=== PATIENT | male | born 1960 | race Caucasian/White ===

== ENCOUNTER 2017-12-17 18:27 | Emergency (ER) | payer SELFPAY ==
[~2017-12-17] VITALS: Ht 172.7 cm; Wt 66.0 kg
[2017-12-17 18:29] VITALS: BP 148/70; PULSE 94; RESP 20; TEMP 97.7; O2SAT 97
[2017-12-17] MEDS ORDERED: DEXAMETHASONE SOD PHOS 4 MG/ML VIAL IM ONE (19:15)
[2017-12-17] MEDS ORDERED: KETOROLAC TROMETHAMINE 60 MG/2 ML (IM) VIAL IM ONE (19:15)
[2017-12-17] MEDS ORDERED: CLINDAMYCIN INJ 600 MG in SODIUM CHLORIDE 0.9% INJ 100 ML IV ONE (19:15)
[2017-12-17 19:35] LABS: BASOPHIL % 0.8 % (0.0-2.0); EOSINOPHIL # 0.7 TH/MM3 (0-0.4); EOSINOPHIL % 12.2 % (0.0-4.0); HEMATOCRIT 39.4 % (39.0-51.0); LYMPHOCYTE # 1.6 TH/MM3 (1.0-4.8); MEAN CELL VOLUME 99.3 FL (80.0-100.0); MEAN CORPUSCULAR HEMOGLOBIN 35.4 PG (27.0-34.0); MEAN CORPUSCULAR HGB CONC 35.6 % (32.0-36.0); MEAN PLATELET VOLUME 7.7 FL (7.0-11.0); MONO % 10.5 % (0.0-8.0); MONOCYTE # 0.6 TH/MM3 (0-0.9); NEUT % 50.5 % (16.0-70.0); PLATELET COUNT 163 TH/MM3 (150-450); RED BLOOD COUNT 3.97 MIL/MM3 (4.50-5.90); RED CELL DISTRIBUTION WIDTH 13.9 % (11.6-17.2)
--- NOTE | 2017-12-17 19:43 | PD ---
HPI Chief Complaint: Skin Problem Time Seen by Provider: 18:42 Travel History International Travel<30 days: No Contact w/Intl Traveler<30days: No Traveled to known affect area: No History of Present Illness HPI 57-year-old , homeless male presents to the emergency department for evaluation of a rash that has been persistent for 2-3 weeks. 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 Says that he went to [facility], was evaluated and given Bactrim and triamcinolone ointment says he has used calamine lotion, bleach, peroxide and other substances without significant improvement. Patient states that the pain is moderate in severity, constant, aching. Also states that the rash is pruritic. He notes swelling of the lower extremities. He denies chronic medical issues medication use. States he does smoke tobacco and does use alcohol. PFSH Past Medical History Blood Disorders: No Cancer: No Cardiovascular Problems: No Diminished Hearing: Yes ([place]) Endocrine: No Genitourinary: No Hypertension: Yes Immune Disorder: No Musculoskeletal: No Neurologic: No Reproductive: No Respiratory: No Past Surgical History Other Surgery: No Social History Alcohol Use: Yes (DAILY DRINKER ) Tobacco Use: Yes (PACK A DAY ) Substance Use: Yes (marijuana) Allergies-Medications (Allergen,Severity, Reaction): Coded Allergies: No Known Allergies (Unverified Adverse Reaction, Unknown, 12/17/17) Reported Meds & Prescriptions Reported Meds & Active Scripts Active Prednisone 5 Mg Tab 5 Mg PO DAILY 10 Days Clindamycin (Clindamycin HCl) 300 Mg Cap 300 Mg PO TID 10 Days Review of Systems Except as stated in HPI: all other systems reviewed are Neg Physical Exam Narrative GENERAL: Well-developed, well-nourished in mild distress SKIN: Focused skin assessment warm/dry. Sun exposed areas of upper and lower extremities with rash. upper extremities-diffuse erythema with multiple healing papules, scattered. Mild edema of the left upper extremity about the wrist. Neurovascularly intact. Bilateral lower extremities-edema distal to the knees bilateral. Neurovascular intact. Homans sign negative. Obvious fissures, scaling. HEAD: Atraumatic. Normocephalic. EYES: Pupils equal and round. No scleral icterus. No injection or drainage. ENT: No nasal bleeding or discharge. Mucous membranes pink and moist. NECK: Trachea midline. No JVD. CARDIOVASCULAR: Regular rate and rhythm. No murmur appreciated. RESPIRATORY: No accessory muscle use. Clear to auscultation. Breath sounds equal bilaterally. MUSCULOSKELETAL: No obvious deformities. No clubbing. No cyanosis. No edema. NEUROLOGICAL: Awake and alert. No obvious cranial nerve deficits. Motor grossly within normal limits. Normal speech. PSYCHIATRIC: Appropriate mood and affect; insight and judgment normal. Data Data Last Documented VS Vital Signs Date Time Temp Pulse Resp B/P (MAP) Pulse Ox O2 Delivery O2 Flow Rate FiO2 12/17/17 18:29 97.7 94 20 148/70 (96) 97 Orders Orders Basic Metabolic Panel (Bmp) (12/17/17 19:01) Complete Blood Count With Diff (12/17/17 19:01) Blood Culture (12/17/17 19:01) Iv Access Insert/Monitor (12/17/17 19:01) Ketorolac Inj (Toradol Inj) (12/17/17 19:15) Clindamycin Inj (Cleocin Inj) (12/17/17 19:15) Dexamethasone Inj (Decadron Inj) (12/17/17 19:15) Ed Discharge Order (12/17/17 21:07) Labs Laboratory Tests Test 12/17/17 19:20 White Blood Count 6.0 TH/MM3 Red Blood Count 3.97 MIL/MM3 Hemoglobin 14.0 GM/DL Hematocrit 39.4 % Mean Corpuscular Volume 99.3 FL Mean Corpuscular Hemoglobin 35.4 PG Mean Corpuscular Hemoglobin Concent 35.6 % Red Cell Distribution Width 13.9 % Platelet Count 163 TH/MM3 Mean Platelet Volume 7.7 FL Neutrophils (%) (Auto) 50.5 % Lymphocytes (%) (Auto) 26.0 % Monocytes (%) (Auto) 10.5 % Eosinophils (%) (Auto) 12.2 % Basophils (%) (Auto) 0.8 % Neutrophils # (Auto) 3.0 TH/MM3 Lymphocytes # (Auto) 1.6 TH/MM3 Monocytes # (Auto) 0.6 TH/MM3 Eosinophils # (Auto) 0.7 TH/MM3 Basophils # (Auto) 0.0 TH/MM3 CBC Comment DIFF FINAL Differential Comment Blood Urea Nitrogen 10 MG/DL Creatinine 0.76 MG/DL Random Glucose 89 MG/DL Calcium Level 8.0 MG/DL Sodium Level 130 MEQ/L Potassium Level 3.6 MEQ/L Chloride Level 93 MEQ/L Carbon Dioxide Level 26.8 MEQ/L Anion Gap 10 MEQ/L Estimat Glomerular Filtration Rate 106 ML/MIN MDM Medical Decision Making Medical Screen Exam Complete: Yes Emergency Medical Condition: Yes Differential Diagnosis Cellulitis, erysipelas, scabies, bedbugs, insect bites Narrative Course 57-year-old , homeless male presents to the emergency department for evaluation of a rash that has been persistent for 2-3 weeks. 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 Says that he went to [facility], was evaluated and given Bactrim and triamcinolone ointment says he has used calamine lotion, bleach, peroxide and other substances without significant improvement. Patient states that the pain is moderate in severity, constant, aching. Also states that the rash is pruritic. He notes swelling of the lower extremities. He denies chronic medical issues medication use. States he does smoke tobacco and does use alcohol. Vital signs are stable. Heart rate 94. Blood pressure stable. Afebrile. Dexamethasone, clindamycin, Toradol administered. Physical exam findings consistent with cellulitis and contact dermatitis. Patient has mild hyponatremia, chronic. Note the patient is a chronic alcoholic. No leukocytosis present. Patient will be discharged with clindamycin and prednisone. He is advised to follow-up with a primary care physician or clinical pharmacologist regarding his condition. Diagnosis Primary Impression: Contact dermatitis Qualified Codes: L24.7 - Irritant contact dermatitis due to plants, except food Additional Impression: Cellulitis Qualified Codes: L03.119 - Cellulitis of unspecified part of limb Referrals: Test Technician Primary Care Physician Additional Instructions: Follow-up with [facility] regarding your skin condition. Avoid triggers or other contacts that may exacerbate your skin condition. You may use [id number] Tylenol Motrin per package instructions for your pain. Take all medications as prescribed. Scripts Prednisone (Prednisone) 5 Mg Tab 5 MG PO DAILY for 10 Days, #10 TAB 0 Refills Prov: Jeffry hPillip MD 12/17/17 Clindamycin (Clindamycin) 300 Mg Cap 300 MG PO TID for Infection for 10 Days, CAP 0 Refills Prov: Jeffry Phillip MD 12/17/17 Disposition: 01 DISCHARGE HOME Condition: Stable Aisha Ascencio Dec 17, 2017 19:43
[2017-12-17 19:54] LABS: BICARBONATE 26.8 MEQ/L (21.0-32.0); CREATININE 0.76 MG/DL (0.60-1.30)
[2017-12-17] MEDS ORDERED: PRED5TAB PO (20:09)
[2017-12-17] MEDS ORDERED: CLIN300C5 PO (20:09)
== END 2017-12-17 21:47 | disposition home or self-care (01) ==
LOC: NEPC 18:27
DX: L24.7 Irritant contact dermatitis due to plants, except food (principal); F17.210 Nicotine dependence, cigarettes, uncomplicated
CPT/HCPCS: 80048; 85025; 87040; 96372; 96374; 99284; J1100; J1885

== ENCOUNTER 2017-12-29 01:35 | Emergency (ER) | payer SELFPAY ==
[~2017-12-29] VITALS: Ht 172.7 cm; Wt 62.8 kg
[~2017-12-29 01:35] MED LIST: CLIN300C5 PO; PRED5TAB PO
[2017-12-29 01:46] VITALS: BP 125/72; PULSE 86; TEMP 97.3
[2017-12-29 02:50] VITALS: BP 125/72; PULSE 86; RESP 16; TEMP 97.3; O2SAT 98
--- NOTE | 2017-12-29 04:40 | PD ---
HPI Chief Complaint: Skin Problem Time Seen by Provider: 03:07 Travel History International Travel<30 days: No Contact w/Intl Traveler<30days: No Traveled to known affect area: No History of Present Illness HPI pt is a 57 yr old male who reports that he was working in [place] and poison oak got on his arms and legs and , it has never gone back to normal , He reports constant pain itching burning scaling sloughing skin on lower legs and fore arms bilateral , He currently is not on any meds . He reports he goes to [facility] and they tell him he must see a specialist ' and then they kick me out and I never get to see a specialist. Pt is mildly intoxicated and sleeping , his legs and arms look like ezcema like chronic inflammation , most likely started 4 months ago wit the exposure to poison oak [facility] Past Medical History Blood Disorders: No Cancer: No Cardiovascular Problems: No Diminished Hearing: Yes ([place]) Endocrine: No Genitourinary: No Hypertension: Yes Immune Disorder: No Musculoskeletal: No Neurologic: No Reproductive: No Respiratory: No Influenza Vaccination: No Past Surgical History Other Surgery: No Social History Alcohol Use: Yes (DAILY DRINKER ) Tobacco Use: Yes (PACK A DAY ) Substance Use: Yes (marijuana) Allergies-Medications (Allergen,Severity, Reaction): Coded Allergies: No Known Allergies (Unverified Adverse Reaction, Unknown, 12/29/17) Reported Meds & Prescriptions Reported Meds & Active Scripts Active Hydrocortisone Maximum St (Hydrocortisone (Topical)) 1 % Cre 1 Applic TOPICAL TID Keflex (Cephalexin) 500 Mg Cap 500 Mg PO Q8H Prednisone 50 Mg Tab 50 Mg PO DAILY Prednisone 5 Mg Tab 5 Mg PO DAILY 10 Days Clindamycin (Clindamycin HCl) 300 Mg Cap 300 Mg PO TID 10 Days Review of Systems Except as stated in HPI: all other systems reviewed are Neg Skin: Positive Rash, Positive Itching, Positive Dryness Physical Exam Narrative GENERAL: mildly disheveled SKIN: Warm and dry. Patient has flaking scaling dry red bilateral legs no signs of infection no purulent discharge no cracking or weeping it appears to be all inflammation process of the dermis dermatitis with chronic scaling flaking also the upper arms same appearance HEAD: Atraumatic. Normocephalic. EYES: Pupils equal and round. No scleral icterus. No injection or drainage. ENT: No nasal bleeding or discharge. Mucous membranes pink and moist. NECK: Trachea midline. No JVD. CARDIOVASCULAR: Regular rate and rhythm. RESPIRATORY: No accessory muscle use. Clear to auscultation. Breath sounds equal bilaterally. GASTROINTESTINAL: Abdomen soft, non-tender, nondistended. Hepatic and splenic margins not palpable. MUSCULOSKELETAL: Extremities scaling cracking erythematous legs and arms looks like eczema thickened scaly flaking skin NEUROLOGICAL: Awake and alert. No obvious cranial nerve deficits. Motor grossly within normal limits. Five out of 5 muscle strength in the arms and legs. Normal speech. PSYCHIATRIC: Appropriate mood and affect; insight and judgment normal. Data Data Last Documented VS Vital Signs Date Time Temp Pulse Resp B/P (MAP) Pulse Ox O2 Delivery O2 Flow Rate FiO2 12/29/17 06:24 78 16 102/65 (77) 96 12/29/17 05:17 Room Air 12/29/17 02:50 97.3 Orders Orders Prednisone (Deltasone) (12/29/17 04:45) Cephalexin (Keflex) (12/29/17 04:45) Acetamin-Hydrocod 325-5 Mg ([place] 5-325 (12/29/17 04:45) Ibuprofen (Motrin) (12/29/17 04:45) Ed Discharge Order (12/29/17 06:11) MDM Medical Decision Making Medical Screen Exam Complete: Yes Emergency Medical Condition: Yes Differential Diagnosis Differential diagnosis includes eczema versus atopic dermatitis versus contact dermatitis versus eczema versus poison oak that has caused a chronic inflammation of the skin Narrative Course Patient is given prednisone Keflex and 1 pain pill and discharged with Keflex for 5 days and prednisone for 5 days follow-up dermatology Diagnosis Primary Impression: Dermatitis Patient Instructions: Dermatitis (ED), General Instructions Scripts Hydrocortisone (Topical) (Hydrocortisone Maximum St) 1 % Cre 1 APPLIC TOPICAL TID, #30 GM Prov: Gurdeep Diehl MD 12/29/17 Cephalexin (Keflex) 500 Mg Cap 500 MG PO Q8H for Infection, #21 CAP 0 Refills Prov: Gurdeep Diehl MD 12/29/17 Prednisone (Prednisone) 50 Mg Tab 50 MG PO DAILY, #5 TAB 0 Refills Prov: Gurdeep Diehl MD 12/29/17 Disposition: 01 DISCHARGE HOME Condition: Good Gurdeep Diehl MD December 29, 2017 04:40
[2017-12-29] MEDS ORDERED: IBUPROFEN 600 MG TAB PO ONE (04:45)
[2017-12-29] MEDS ORDERED: CEPHALEXIN MONOHYDRATE 500 MG CAP PO ONE (04:45)
[2017-12-29] MEDS ORDERED: predniSONE 20 MG TAB PO ONE (04:45)
[2017-12-29] MEDS ORDERED: ACETAMINOPHEN/HYDROcodone 325 MG/5 MG TAB PO ONE (04:45)
[2017-12-29 05:17] VITALS: BP 103/60; PULSE 78; RESP 18; O2SAT 96
[2017-12-29 05:48] VITALS: RESP 16
[2017-12-29] MEDS ORDERED: PRED50 PO (06:05)
[2017-12-29] MEDS ORDERED: CEPH-460 PO (06:05)
[2017-12-29] MEDS ORDERED: HYDR1CRE15 TOPICAL (06:06)
[2017-12-29 06:24] VITALS: BP 102/65
[2017-12-29] MEDS ORDERED: BACT800T5 PO (06:41)
== END 2017-12-29 06:35 | disposition home or self-care (01) ==
LOC: PHED 01:35
DX: L30.9 Dermatitis, unspecified (principal); I10 Essential (primary) hypertension; F17.200 Nicotine dependence, unspecified, uncomplicated; F12.90 Cannabis use, unspecified, uncomplicated; Z79.899 Other long term (current) drug therapy
CPT/HCPCS: 99283; J7512

== ENCOUNTER 2018-01-22 01:44 | Emergency (ER) | payer OTHER ==
[~2018-01-22 01:44] MED LIST changes: +BACT800T5 PO; +CEPH-460 PO; +HYDR1CRE15 TOPICAL; +PRED50 PO
[2018-01-22 02:43] VITALS: BP 141/83; PULSE 84; RESP 16; TEMP 97.8; O2SAT 95
[2018-01-22] MEDS ORDERED: SODIUM CHLORIDE 0.9% FLUSH 10 ML FLUSH IVF PRN (03:30)
[2018-01-22 04:10] LABS: CREATININE 0.56 MG/DL (0.60-1.30)
--- NOTE | 2018-01-22 05:10 | PD ---
HPI Chief Complaint: Alcohol/Drug Intoxication Time Seen by Provider: 03:18 Travel History International Travel<30 days: No Contact w/Intl Traveler<30days: No Traveled to known affect area: No History of Present Illness HPI 57-year-old male with a history of alcoholism, presents here requesting detox. Patient states he wishes to go to [facility] Patient reports drinking heavily daily. He would not quantitate what he drinks daily. He has a history of left eye injury in the past. There are no other complaints at time of examination. PFSH Past Medical History Blood Disorders: No Cancer: No Cardiovascular Problems: No Diminished Hearing: Yes ([place]) Endocrine: No Genitourinary: No Hypertension: Yes Immune Disorder: No Musculoskeletal: No Neurologic: No Reproductive: No Respiratory: No Past Surgical History Surgical History: No Previous Surgery Other Surgery: No Social History Alcohol Use: Yes (DAILY DRINKER ) Tobacco Use: Yes (PACK A DAY ) Substance Use: Yes (marijuana, HEROIN ) Allergies-Medications (Allergen,Severity, Reaction): Coded Allergies: No Known Allergies (Unverified Adverse Reaction, Unknown, 12/29/17) Reported Meds & Prescriptions Reported Meds & Active Scripts Active Bactrim DS (Sulfamethoxazole-Trimethoprim) 800-160 Mg Tab 1 Tab PO BID Hydrocortisone Maximum St (Hydrocortisone (Topical)) 1 % Cre 1 Applic TOPICAL TID Keflex (Cephalexin) 500 Mg Cap 500 Mg PO Q8H Prednisone 50 Mg Tab 50 Mg PO DAILY Prednisone 5 Mg Tab 5 Mg PO DAILY 10 Days Clindamycin (Clindamycin HCl) 300 Mg Cap 300 Mg PO TID 10 Days Review of Systems ROS Limitations: Intoxication (Limited secondary to his intoxication) Cardiovascular: No: Chest Pain or Discomfort, Palpitations Respiratory: No: Cough, Shortness of Breath Physical Exam Narrative GENERAL: Well-nourished, well-developed patient who appears intoxicated. Patient is in no acute respiratory distress. SKIN: Focused skin assessment warm/dry. HEAD: Normocephalic/atraumatic. EYES: Right eye is without injection or drainage or icteric sclera. Patient has an old injury to his left eye. NECK: Supple, trachea midline. CARDIOVASCULAR: Regular rate and rhythm without murmurs, gallops, or rubs. RESPIRATORY: Breath sounds equal bilaterally. No accessory muscle use. GASTROINTESTINAL: Abdomen soft, non-tender, nondistended. MUSCULOSKELETAL: No cyanosis, or edema. NEUROLOGICAL: Awake and intoxicated. Cranial nerves II through XII intact. Motor and sensory grossly within normal limits. Five out of 5 muscle strength in all muscle groups. Slurred speech Data Data Last Documented VS Vital Signs Date Time Temp Pulse Resp B/P (MAP) Pulse Ox O2 Delivery O2 Flow Rate FiO2 01/22/18 02:43 97.8 84 16 141/83 (102) 95 Orders Orders Basic Metabolic Panel (Bmp) (01/22/18 03:18) Iv Access Insert/Monitor (01/22/18 03:18) Sodium Chloride 0.9% Flush (Ns Flush) (01/22/18 03:30) Alcohol (Ethanol) (01/22/18 03:18) Labs Laboratory Tests Test 01/22/18 03:44 Blood Urea Nitrogen 8 MG/DL Creatinine 0.56 MG/DL Random Glucose 119 MG/DL Calcium Level 8.0 MG/DL Sodium Level 139 MEQ/L Potassium Level 3.4 MEQ/L Chloride Level 104 MEQ/L Carbon Dioxide Level 24.0 MEQ/L Anion Gap 11 MEQ/L Estimat Glomerular Filtration Rate 150 ML/MIN Ethyl Alcohol Level 237 MG/DL MDM Medical Decision Making Medical Screen Exam Complete: Yes Emergency Medical Condition: Yes Differential Diagnosis Intoxication versus metabolic derangement versus malingering Narrative Course 57-year-old male with history of chronic alcohol abuse, presents here requesting [facility] referral. Patient is intoxicated. Blood alcohol level is greater than 200. He will be observed until he is appropriately sober. We will attempt to try to get him to [facility] tomorrow. He is currently not under a [place] act. Diagnosis Primary Impression: Alcohol intoxication Justin Banks MD Jan 22, 2018 05:10
[2018-01-22 06:04] VITALS: BP 97/59; PULSE 86; RESP 20; O2SAT 96
--- NOTE | 2018-01-22 09:46 | PD ---
Physical Exam Time Seen by Provider: 09:43 Narrative patient has given him a substantial amount of time to sleep and sober up. He is awake and ambulating in the hallway without complication. He has no medical complaints at this time. Patient is safe for discharge. Data Data Last Documented VS Vital Signs Date Time Temp Pulse Resp B/P (MAP) Pulse Ox O2 Delivery O2 Flow Rate FiO2 01/22/18 06:04 86 20 97/59 (72) 96 01/22/18 02:43 97.8 Orders Orders Basic Metabolic Panel (Bmp) (01/22/18 03:18) Iv Access Insert/Monitor (01/22/18 03:18) Sodium Chloride 0.9% Flush (Ns Flush) (01/22/18 03:30) Alcohol (Ethanol) (01/22/18 03:18) Diet Regular Basic (01/22/18 Breakfast) Labs Laboratory Tests Test 01/22/18 03:44 Blood Urea Nitrogen 8 MG/DL Creatinine 0.56 MG/DL Random Glucose 119 MG/DL Calcium Level 8.0 MG/DL Sodium Level 139 MEQ/L Potassium Level 3.4 MEQ/L Chloride Level 104 MEQ/L Carbon Dioxide Level 24.0 MEQ/L Anion Gap 11 MEQ/L Estimat Glomerular Filtration Rate 150 ML/MIN Ethyl Alcohol Level 237 MG/DL MDM Supervised Visit with DEANNE: No Narrative Course patient has given him a substantial amount of time to sleep and sober up. He is awake and ambulating in the hallway without complication. He has no medical complaints at this time. Patient is safe for discharge. Start patient to follow-up at [facility] for detox. Patient provided information for [facility]. Instructed patient to follow up with primary care provider. Patient verbalizes understanding and agreement with treatment plan. Patient is medically cleared and stable for discharge. Discussed reasons to return to the emergency department. Patient agrees with treatment plan. The patients vital signs are stable and the patient is stable for outpatient follow-up and treatment. Patient discharged home, stable and in no acute distress. Diagnosis Primary Impression: Alcohol intoxication Qualified Codes: F10.920 - Alcohol use, unspecified with intoxication, uncomplicated Ref[facility]: [facility] Patient Instructions: Abuse of Alcohol (ED), Alcohol Dependence (ED), Alcohol Intoxication (ED), General Instructions Departure Forms: Tests/Procedures Additional Instruction: Contract safety to your self and others Stop drinking alcohol or drink alcohol in moderation Follow-up in the community for support, such as with Alcoholics Anonymous Follow-up with psychiatry Follow-up with primary care provider Follow-up with Robert Grier/JOS[facility] Return to the emergency department immediately with worsening of symptoms Med/Other Pt SpecificInfo: No Change to Meds, No Meds Exist/No RX given Disposition: 01 DISCHARGE HOME Condition: Stable Veronica Gresham Jan 22, 2018 09:46
== END 2018-01-22 09:45 | disposition home or self-care (01) ==
LOC: NEPD 01:44
DX: F10.129 Alcohol abuse with intoxication, unspecified (principal); I10 Essential (primary) hypertension; F12.90 Cannabis use, unspecified, uncomplicated; F11.90 Opioid use, unspecified, uncomplicated; F17.200 Nicotine dependence, unspecified, uncomplicated; Y90.7 Blood alcohol level of 200-239 mg/100 ml; Z79.899 Other long term (current) drug therapy
CPT/HCPCS: 80048; 80307; 99283